=== PATIENT | female | born 1950 | race Caucasian/White ===

== ENCOUNTER 2017-03-12 11:57 | Emergency (ER) | payer OTHER ==
[~2017-03-12] VITALS: Ht 160 cm; Wt 127.9 kg
[~2017-03-12 11:57] MED LIST: COZ50 PO; GLU500 PO; HYD25 PO; LAC15L PO; METFORMIN HCL1000 MG PO; SIMVASTATIN10 M1 PO; SYN25 PO
[2017-03-12 14:07] VITALS: BP 142/80
== END 2017-03-12 14:07 | disposition home or self-care (01) ==
LOC: ED 11:57
DX: M25.562 Pain in left knee (principal); I10 Essential (primary) hypertension; E11.9 Type 2 diabetes mellitus without complications; E03.9 Hypothyroidism, unspecified; Z88.5 Allergy status to narcotic agent; Z79.84 Long term (current) use of oral hypoglycemic drugs; Z79.899 Other long term (current) drug therapy
CPT/HCPCS: J1885

== ENCOUNTER 2017-11-11 07:01 | Emergency (ER) | payer OTHER ==
[~2017-11-11] VITALS: Ht 160 cm; Wt 125.2 kg
[2017-11-11 07:11] VITALS: Ht 160 cm; Wt 125.2 kg
[2017-11-11 08:20] VITALS: BP 121/82
== END 2017-11-11 08:20 | disposition home or self-care (01) ==
LOC: ED 07:01
DX: S70.02XA Contusion of left hip, initial encounter (principal); S30.0XXA Contusion of lower back and pelvis, initial encounter; E66.9 Obesity, unspecified; I10 Essential (primary) hypertension; E11.9 Type 2 diabetes mellitus without complications; Z90.710 Acquired absence of both cervix and uterus; Z68.42 Body mass index [BMI] 45.0-49.9, adult; W19.XXXA Unspecified fall, initial encounter; Y93.89 Activity, other specified; Y92.89 Other specified places as the place of occurrence of the external cause; Y99.8 Other external cause status
CPT/HCPCS: J1885

== ENCOUNTER 2017-11-12 07:55 | Emergency (ER) | payer OTHER ==
[~2017-11-12] VITALS: Ht 160 cm; Wt 126.1 kg
[2017-11-12 07:58] VITALS: Ht 160 cm; Wt 126.1 kg
[2017-11-12 08:38] LABS: BASOPHIL % 0.3 % (0-2); PLATELET COUNT 146 x10^3mcL (130-400); RED CELL DISTRIBUTION WIDTH 13.3 % (11.5-14.5)
[2017-11-12 08:53] LABS: CALCIUM 9.2 mg/dL (8.5-10.1); CARBON DIOXIDE 27.7 mmol/L (21-32); CREATININE SERUM 1.3 mg/dL (0.6-1.0); POTASSIUM SERUM 3.9 mmol/L (3.5-5.1)
[2017-11-12 08:58] LABS: BILIRUBIN TOTAL 1.2 mg/dL (0.20-1.00); TOTAL PROTEIN, SERUM 7.5 g/dL (6.4-8.2)
[2017-11-12 08:58] LABS: UA SPECIFIC GRAVITY >=1.030 (1.005-1.035); microscopic required? YES; urine erythrocyte 3+ (NEGATIVE)
[2017-11-12 09:02] LABS: ALBUMIN 3.2 g/dL (3.4-5.0)
[2017-11-12 10:51] VITALS: BP 128/86
== END 2017-11-12 10:51 | disposition home or self-care (01) ==
LOC: ED 07:55
PROVIDERS: Emergency Medicine
DX: S30.0XXA Contusion of lower back and pelvis, initial encounter (principal); N13.30 Unspecified hydronephrosis; R31.9 Hematuria, unspecified; E11.9 Type 2 diabetes mellitus without complications; I10 Essential (primary) hypertension; E78.00 Pure hypercholesterolemia, unspecified; Z88.5 Allergy status to narcotic agent; Z88.8 Allergy status to other drugs, medicaments and biological substances; Z91.018 Allergy to other foods; W18.30XA Fall on same level, unspecified, initial encounter; Y93.89 Activity, other specified; Y92.89 Other specified places as the place of occurrence of the external cause; Y99.8 Other external cause status
CPT/HCPCS: 36415; J1885; Q0092

== ENCOUNTER 2018-02-04 18:52 | Emergency (ER) | payer OTHER ==
[2018-02-04 21:16] VITALS: BP 155/95
== END 2018-02-04 21:16 | disposition home or self-care (01) ==
LOC: ED 18:52
DX: S46.912A Strain of unspecified muscle, fascia and tendon at shoulder and upper arm level, left arm, initial encounter (principal); I10 Essential (primary) hypertension; E11.9 Type 2 diabetes mellitus without complications; E78.00 Pure hypercholesterolemia, unspecified; E07.9 Disorder of thyroid, unspecified; Z88.8 Allergy status to other drugs, medicaments and biological substances; Z91.018 Allergy to other foods; Z88.5 Allergy status to narcotic agent; W18.30XA Fall on same level, unspecified, initial encounter; Y93.89 Activity, other specified; Y99.8 Other external cause status; Y92.89 Other specified places as the place of occurrence of the external cause
CPT/HCPCS: J1885; J3010; Q0092

== ENCOUNTER 2018-05-08 23:37 | Emergency (ER) | payer OTHER ==
[~2018-05-08] VITALS: Ht 160 cm; Wt 128.0 kg
[2018-05-08 23:55] VITALS: Ht 160 cm; Wt 128.0 kg
[2018-05-09 01:04] LABS: microscopic required? YES; urine erythrocyte 3+ (NEGATIVE)
[2018-05-09 01:08] LABS: BASOPHIL % 0.6 % (0-2); PLATELET COUNT 141 x10^3mcL (130-400); RED CELL DISTRIBUTION WIDTH 13.8 % (11.5-14.5)
[2018-05-09 02:08] LABS: CARBON DIOXIDE 27.6 mmol/L (21-32); CREATININE SERUM 1.1 mg/dL (0.6-1.0); POTASSIUM SERUM 3.5 mmol/L (3.5-5.1)
[2018-05-09 02:13] LABS: BILIRUBIN TOTAL 0.83 mg/dL (0.20-1.00); TOTAL PROTEIN, SERUM 6.3 g/dL (6.4-8.2)
[2018-05-09 02:15] LABS: ALBUMIN 2.6 g/dL (3.4-5.0)
[2018-05-09] MEDS ORDERED: SYNTHROID0.125 MG PO (02:52)
[2018-05-09] MEDS ORDERED: ACT15 PO (02:52)
[2018-05-09] MEDS ORDERED: SIMVASTATIN20 M1 PO (02:53)
[2018-05-09] MEDS ORDERED: COZAAR50 M1 PO (02:54)
[2018-05-09] MEDS ORDERED: HYDROCHLOROTH12.5 M2 PO (02:55)
[2018-05-09] MEDS ORDERED: MASON NATURAL1000 IU PO (02:55)
[2018-05-09] MEDS ORDERED: TRAMADOL HCL50 MG PO (02:56)
[2018-05-09] MEDS ORDERED: LIDOCAINE PAIN1 EACH TP (02:56)
[2018-05-09 02:58] VITALS: BP 115/68
== END 2018-05-09 03:30 | disposition home or self-care (01) ==
LOC: ED 23:37
PROVIDERS: Emergency Medicine
DX: N20.1 Calculus of ureter (principal); I10 Essential (primary) hypertension; E11.9 Type 2 diabetes mellitus without complications; E78.00 Pure hypercholesterolemia, unspecified; Z88.8 Allergy status to other drugs, medicaments and biological substances
CPT/HCPCS: J1885; J2270; J2405; J7030